=== PATIENT | female | born 1990 | race Two or more races ===

== ENCOUNTER 2020-07-27 13:46 | Outpatient (CLI) | payer BC ==
[~2020-07-27] VITALS: Ht 165.1 cm; Wt 92.3 kg
[2020-07-27 13:51] VITALS: BP 111/79
== END 2020-07-27 16:25 | disposition home or self-care (01) ==
LOC: LDOP 13:46
PROVIDERS: ATTEND Obstetrics & Gynecology
DX: O77.8 Labor and delivery complicated by other evidence of fetal stress (principal); Z3A.33 33 weeks gestation of pregnancy
CPT/HCPCS: 59025; 76819

== ENCOUNTER → 2020-08-10 | Outpatient (CLI) | payer BC ==
[~2020-08-10] VITALS: Ht 162.6 cm; Wt 95.0 kg
[2020-08-10 11:23] VITALS: BP 126/93
[2020-08-10 13:28] LABS: CREATININE,URINE RANDOM < 13.00 mg/dL; TOTAL PROTEIN,URINE RANDOM < 5 mg/dL (0-12)
[2020-08-10 13:28] LABS: BASOPHILS # (AUTO) 0.05 x10^3/uL (0-0.1); BASOPHILS % (AUTO) 0 % (0-1); EOSINOPHILS # (AUTO) 0.04 x10^3/uL (0-0.4); EOSINOPHILS % (AUTO) 0 % (1-7); LYMPHOCYTES # (AUTO) 1.77 x10^3/uL (1-3.4); LYMPHOCYTES % (AUTO) 15 % (22-44); MD NO; MEAN CORPUSCULAR HGB CONC 33.9 g/dL (32.4-35.8); MEAN CORPUSCULAR VOLUME 94.3 fL (80-100); MEAN PLATELET VOLUME 8.1 fL (7.4-10.4); MONOCYTES # (AUTO) 0.49 x10^3/uL (0.2-0.8); MONOCYTES % (AUTO) 4 % (2-9); NEUTROPHILS # (AUTO) 9.67 x10^3/uL (1.8-6.8); NEUTROPHILS % (AUTO) 81 % (42-75); PLATELET COUNT 211 x10^3/uL (130-400); RED BLOOD COUNT 5.11 x10^6/uL (3.82-5.3); RED CELL DISTRIBUTION WIDTH 14.1 % (9.6-15.2)
[2020-08-10 13:39] LABS: ALANINE AMINOTRANSFERASE 41 U/L (12-78); ALBUMIN 2.8 g/dL (3.4-5.0); ANION GAP 9 mmol/L (5-15); BILIRUBIN, DIRECT 0.1 mg/dL (0.1-0.2); CALCIUM 9.5 mg/dL (8.5-10.1); CHLORIDE 109 mmol/L (98-107); CREATININE 0.56 mg/dL (0.55-1.02)
[2020-08-10 13:41] LABS: ALKALINE PHOSPHATASE 89 U/L (45-117); BILIRUBIN,TOTAL 0.6 mg/dL (0.2-1.0); TOTAL PROTEIN 6.9 g/dL (6.4-8.2)
== END | disposition home or self-care (01) ==
LOC: LDOP 11:10
PROVIDERS: ATTEND Obstetrics & Gynecology
DX: Z34.93 Encounter for supervision of normal pregnancy, unspecified, third trimester (principal); Z3A.35 35 weeks gestation of pregnancy
CPT/HCPCS: 36415; 59025; 76819; 80053; 82248; 82570; 84156; 84550; 85025

== ENCOUNTER 2020-08-17 16:46 | Inpatient (IN) | payer BC ==
[~2020-08-17] VITALS: Ht 165.1 cm; Wt 95.0 kg
[2020-08-17] MEDS ORDERED: morphine SULFATE/PF 0.5 MG/ML, 10ML ONE (16:59)
[2020-08-17] MEDS ORDERED: PHENYLEPHRINE 10 MG/ML ONE (17:00)
[2020-08-17] MEDS ORDERED: EPHEDRINE 50 MG/ML, 1ML ONE (17:00)
[2020-08-17] MEDS ORDERED: METOCLOPRAMIDE 5 MG/ML, 2ML IV ONE (17:00)
[2020-08-17] MEDS ORDERED: ONDANSETRON 2MG/ML, 2ML ONE (17:00)
[2020-08-17] MEDS ORDERED: CEFAZOLIN 1,000 MG ONE (17:00)
[2020-08-17] MEDS ORDERED: LACTATED RINGERS 1,000 ML IVBOLUS ONE (17:00)
[2020-08-17] MEDS ORDERED: OXYTOCIN 10 UNITS/ML, 1ML ONE (17:00)
[2020-08-17] MEDS ORDERED: WATER-INJECTION,STERILE 10 ML IV ONE (17:00)
[2020-08-17] MEDS ORDERED: SODIUM CITRATE/CITRIC ACID 30 ML UDC PO ONE (17:00)
[2020-08-17] MEDS ORDERED: OXYTOCIN 30U/ 0.9% NaCL 500ML 500 ML ONE (17:23)
[2020-08-17] MEDS ORDERED: NEWBORN KIT ONE (17:23)
[2020-08-17 17:27] LABS: BASOPHILS # (AUTO) 0.02 x10^3/uL (0-0.1); BASOPHILS % (AUTO) 0 % (0-1); EOSINOPHILS # (AUTO) 0.03 x10^3/uL (0-0.4); EOSINOPHILS % (AUTO) 0 % (1-7); LYMPHOCYTES # (AUTO) 1.75 x10^3/uL (1-3.4); LYMPHOCYTES % (AUTO) 15 % (22-44); MD NO; MEAN CORPUSCULAR HEMOGLOBIN 31.1 pg (27.0-34.8); MEAN CORPUSCULAR HGB CONC 32.7 g/dL (32.4-35.8); MEAN PLATELET VOLUME 8.5 fL (7.4-10.4); MONOCYTES # (AUTO) 0.54 x10^3/uL (0.2-0.8); MONOCYTES % (AUTO) 5 % (2-9); NEUTROPHILS # (AUTO) 9.38 x10^3/uL (1.8-6.8); NEUTROPHILS % (AUTO) 80 % (42-75); PLATELET COUNT 207 x10^3/uL (130-400); RED BLOOD COUNT 4.93 x10^6/uL (3.82-5.3); RED CELL DISTRIBUTION WIDTH 14.2 % (9.6-15.2)
[2020-08-17] MEDS ORDERED: DIPHENHYDRAMINE 50 MG/ML, 1ML IV PRN (17:50)
[2020-08-17] MEDS ORDERED: EPINEPHRINE 1 MG/ML, 1ML ONE (18:11)
[2020-08-17] MEDS: OXYTOCIN 30U/ 0.9% NaCL 500ML 500 ML IV SCH (19:22)
[2020-08-17] MEDS: LACTATED RINGERS 1,000 ML IV SCH ×2 (19:22)
[2020-08-17] MEDS ORDERED: MISOPROSTOL 200 MCG TABLET PR PRN (19:30)
[2020-08-17] MEDS ORDERED: morphine SULFATE 10 MG/ML, 1ML IVPush PRN (19:30)
[2020-08-17] MEDS ORDERED: MORPHINE SULFATE 4 MG/ML, 1ML IVPush PRN (19:30)
[2020-08-17] MEDS ORDERED: OXYcodone IR 5MG TABLET PO PRN (19:30)
[2020-08-17] MEDS ORDERED: KETOROLAC 30 MG/1 ML IV SCH (19:30)
[2020-08-17] MEDS ORDERED: ONDANSETRON 2MG/ML, 2ML IV PRN (19:30)
[2020-08-17] MEDS ORDERED: CALCIUM CARBONATE 500 MG TAB.CHEW PO PRN (19:30)
[2020-08-17] MEDS ORDERED: OXYcodone 5 MG/5 ML ORAL.SOL UDC PO PRN (20:00)
[2020-08-17] MEDS ORDERED: KETOROLAC 30 MG/1 ML IVPush PRN (20:00)
[2020-08-17] MEDS ORDERED: ONDANSETRON 2MG/ML, 2ML IVPush PRN (20:00)
[2020-08-17] MEDS ORDERED: KETOROLAC 30 MG/1 ML ONE (20:14)
[2020-08-17] MEDS ORDERED: DIPHENHYDRAMINE 50 MG/ML, 1ML ONE (20:14)
[2020-08-17 21:50] VITALS: BP 114/73
[2020-08-17] MEDS: OXYcodone IR 5MG TABLET PO PRN (22:44)
[2020-08-17] MEDS ORDERED: NALOXONE 0.4 MG/ML, 1ML IV PRN (23:45)
[2020-08-17] MEDS ORDERED: HYDROmorphone 1 MG/ML, 1ML INJ IVPush PRN (23:45)
[2020-08-18 00:10] VITALS: BP 101/67
[2020-08-18] MEDS: KETOROLAC 30 MG/1 ML IV SCH ×4 (02:08→22:29)
[2020-08-18] MEDS: LACTATED RINGERS 1,000 ML IV SCH ×5 (03:22→19:22)
[2020-08-18 04:11] VITALS: BP 100/65
[2020-08-18] MEDS: OXYcodone IR 5MG TABLET PO PRN ×2 (05:19→06:19)
[2020-08-18] MEDS: OXYTOCIN 30U/ 0.9% NaCL 500ML 500 ML IV SCH ×2 (05:22→15:22)
[2020-08-18] MEDS: KETOROLAC 30 MG/1 ML IVPush SCH ×2 (06:00)
[2020-08-18 06:02] LABS: BASOPHILS # (AUTO) 0.04 x10^3/uL (0-0.1); BASOPHILS % (AUTO) 0 % (0-1); EOSINOPHILS # (AUTO) 0.02 x10^3/uL (0-0.4); EOSINOPHILS % (AUTO) 0 % (1-7); LYMPHOCYTES % (AUTO) 14 % (22-44); MD NO; MEAN CORPUSCULAR HEMOGLOBIN 31.3 pg (27.0-34.8); MEAN CORPUSCULAR HGB CONC 33.3 g/dL (32.4-35.8); MONOCYTES # (AUTO) 0.76 x10^3/uL (0.2-0.8); MONOCYTES % (AUTO) 6 % (2-9); NEUTROPHILS # (AUTO) 10.11 x10^3/uL (1.8-6.8); NEUTROPHILS % (AUTO) 79 % (42-75); PLATELET COUNT 181 x10^3/uL (130-400); RED BLOOD COUNT 4.32 x10^6/uL (3.82-5.3)
[2020-08-18 07:35] VITALS: BP 110/75
[2020-08-18] MEDS: PRENATAL VIT/IRON/FA 1 EACH TABLET PO SCH (08:16)
[2020-08-18] MEDS: SIMETHICONE 80 MG CHEW TAB PO PRN ×2 (08:16→14:21)
[2020-08-18] MEDS: DOCUSATE 100 MG CAPSULE PO PRN (08:16)
[2020-08-18 12:30] VITALS: BP 121/81
[2020-08-18 17:30] VITALS: BP 135/90
[2020-08-18 20:05] VITALS: BP 118/86
[2020-08-19] MEDS: LACTATED RINGERS 1,000 ML IV SCH ×2 (01:22→03:22)
[2020-08-19] MEDS: OXYTOCIN 30U/ 0.9% NaCL 500ML 500 ML IV SCH (01:22)
[2020-08-19] MEDS: KETOROLAC 30 MG/1 ML IV SCH ×3 (03:50→16:19)
[2020-08-19 08:25] VITALS: BP 114/85
[2020-08-19] MEDS: DOCUSATE 100 MG CAPSULE PO PRN (08:53)
[2020-08-19] MEDS: PRENATAL VIT/IRON/FA 1 EACH TABLET PO SCH (08:53)
[2020-08-19] MEDS: SIMETHICONE 80 MG CHEW TAB PO PRN (16:19)
[2020-08-19] MEDS ORDERED: IBUPROFEN 600 MG TABLET PO PRN (19:30)
[2020-08-20] MEDS ORDERED: DOCU-131 PO (07:11)
[2020-08-20] MEDS ORDERED: IBUP-1222 PO (07:11)
[2020-08-20 07:55] VITALS: BP 122/86
[2020-08-20] MEDS: PRENATAL VIT/IRON/FA 1 EACH TABLET PO SCH (08:28)
[2020-08-20] MEDS: DOCUSATE 100 MG CAPSULE PO PRN (08:28)
== END 2020-08-20 11:25 | disposition home or self-care (01) | DRG 788 ==
LOC: LDIP 16:48 → 2NW 21:20
PROVIDERS: ADMIT Obstetrics & Gynecology; ATTEND Obstetrics & Gynecology
PROC: 10D00Z1 Extraction of Products of Conception, Low, Open Approach (ICD-10-PCS; principal; 2020-08-17)
DX: O69.81X0 Labor and delivery complicated by cord around neck, without compression, not applicable or unspecified (principal); O99.214 Obesity complicating childbirth; E66.9 Obesity, unspecified; O24.92 Unspecified diabetes mellitus in childbirth; Z37.0 Single live birth; Z3A.36 36 weeks gestation of pregnancy; Z79.4 Long term (current) use of insulin; Z03.818 Encounter for observation for suspected exposure to other biological agents ruled out
CPT/HCPCS: 36415; 82947; 82962; 85025; 86592; 86850; 86900; 87081; 87147; 87635; G0378; J0171; J0690; J1885; J2274; J2405; J2370; J2590; J2765; J7120